=== PATIENT | female | born 1975 | race Caucasian/White ===

== ENCOUNTER 2017-03-08 04:57 | Day surgery (SDC) | payer BC ==
[2017-03-04 12:23] LABS: HEMATOCRIT 35.1 % (36.0-48.0); HEMOGLOBIN 12.2 g/dL (12.0-16.0)
--- NOTE | ~2017-03-08 | OP ---
Record Of Operation [facility] [address] [place]. [address] NAME: BENNY RAJPUT : 77 [place]US : [facility] [place] PAT#: [id number] AGE: 41 ADM/REG DATE : 03/08/17 MR#: [id number] REPORT SERV DATE: 03/08/17 DICTATED BY: GEOFFREY DEJESUS DATE: 03/08/17 REPORT STATUS : Draft TRANSCRIBED BY: MODL DATE: 03/08/17 DATE OF PROCEDURE: 03/08/2017 PREOPERATIVE DIAGNOSES: C5-C6 disk herniation with severe stenosis and cervical radiculopathy. POSTOPERATIVE DIAGNOSES: C5-C6 disk herniation with severe stenosis and cervical radiculopathy. PROCEDURES: C5-C6 anterior cervical disk arthroplasty, use of operative microscope, and neuromonitoring. SURGEON: Geoffrey Dejesus DO. ANESTHESIA: General. ESTIMATED BLOOD LOSS: 10 mL. COMPLICATIONS: None. INDICATIONS: The patient is a pleasant 41-year-old with intractable neck and right upper extremity pain, paresthesias, failed conservative treatment. After discussion of the risks and benefits, elected to proceed with surgical intervention. PROCEDURE IN DETAIL: I identified the patient in the holding area. Consent was obtained. Went to the operating room. Underwent general anesthesia with endotracheal intubation. Prepped and draped in the usual sterile fashion. Operative safety pause was performed, then we proceeded with the surgery. A transverse incision was made on the left side over the C5- C6 level in alignment with the skin crease. Dissection was carried out down to the anterior aspect of the spine. Longus colli were elevated. Self-retaining retractors were placed. [place] pin was placed in the C5 vertebrae and verified level with operative with lateral fluoroscopic image. An additional pin was placed at C6. Distraction was applied. Operative microscope was brought in. Knife was used to perform an annulotomy. Free disk material was removed with the pituitary. Anterior osteophytes were removed with the Kerrison. Posterior osteophytes and uncinate processes were taken down with a nimco sanjiv. Foraminotomies performed with a Kerrison. Endplates were prepared with a rasp and curettes. Trial spacer was implanted, and verified for good size in the AP and lateral fluoroscopic images. Next, the guide was placed and four temporary pins were placed into the vertebral body and the alignment was again verified with AP and lateral fluoroscopic image. The pins were removed and then the device to perform the small Nancy was implanted to create the Nancy, and then it was removed after verifying good position with AP and lateral images. The Medtronic disk arthroplasty device, the PRESTIGE LP was gently inserted into place through the previously made path. It was verified for good position in the AP and lateral fluoroscopic images. The special ed assistant device was removed. Final AP and lateral images were obtained. Hemostasis was achieved. Irrigation was performed. Layered closure was performed. Sterile dressings were applied. The patient was awoken and extubated, and taken Record Of Operation [address] [address] NAME: BENNY RAJPUT : 77 [place]US : [facility] [place] PAT#: [id number] AGE: 41 ADM/REG DATE : 03/08/17 MR#: [id number] REPORT SERV DATE: 03/08/17 DICTATED BY: GEOFFREY DEJESUS DATE: 03/08/17 REPORT STATUS : Draft TRANSCRIBED BY: CHUCHO DATE: 03/08/17 to the recovery room in stable condition. OPERATIVE FINDINGS: C5-6 disk herniation and stenosis. No sustained neuromonitoring alerts. JULIANE/CHUCHO Geoffrey Dejesus DO / [id number] CC: DO Albertina Monsalve M.D.
[~2017-03-08 04:57] MED LIST: AT25 PO; LORT7 PO; SINGULAIR1 PO; VESICARE10 MG PO; ZYRTEC-D ALG PO
[2017-03-21] MEDS ORDERED: BACDS PO (16:00)
[2017-03-21] MEDS ORDERED: FLEX PO (16:01)
[2017-03-21] MEDS ORDERED: PHENYLEPHRIN10 MG PO (16:02)
[2017-03-21] MEDS ORDERED: ZYRTEC ALLGY10 MG PO (16:11)
== END 2017-03-08 17:13 | disposition home or self-care (01) ==
LOC: SDC 04:57
PROVIDERS: Orthopaedic Surgery
PROC: 0RR30JZ Replacement of Cervical Vertebral Disc with Synthetic Substitute, Open Approach (ICD-10-PCS; principal; 2017-03-08 06:45)
DX: M50.122 Cervical disc disorder at C5-C6 level with radiculopathy (principal); M48.02 Spinal stenosis, cervical region; M41.9 Scoliosis, unspecified; K31.84 Gastroparesis; F32.9 Major depressive disorder, single episode, unspecified; N30.10 Interstitial cystitis (chronic) without hematuria; Z88.5 Allergy status to narcotic agent; Z79.899 Other long term (current) drug therapy; Z98.890 Other specified postprocedural states; Z87.891 Personal history of nicotine dependence; Z90.49 Acquired absence of other specified parts of digestive tract
CPT/HCPCS: 82962; 84703; 85014; 85018; 87070; 88304; 88311; C1713; J0690; J2250; J2405; J2710; J3010

== ENCOUNTER 2017-03-22 11:52 | Day surgery (SDC) | payer BC ==
--- NOTE | ~2017-03-22 | OP ---
Record Of Operation [facility] [address] [place]. [address] NAME: BENNY RAJPUT : 77 STATUS : [facility] [place] PAT#: [id number] AGE: 41 ADM/REG DATE : 03/22/17 MR#: [id number] REPORT SERV DATE: 03/22/17 DICTATED BY: GEOFFREY DEJESUS DATE: 03/22/17 REPORT STATUS : Draft TRANSCRIBED BY: MODL DATE: 03/22/17 DATE OF PROCEDURE: 03/22/2017 PREOPERATIVE DIAGNOSIS: Postoperative wound dehiscence, status post cervical arthroplasty. POSTOPERATIVE DIAGNOSIS: Postoperative wound dehiscence, status post cervical arthroplasty (no signs of intraoperative infection) SURGEON: Geoffrey Dejesus DO. ANESTHESIA: General. ESTIMATED BLOOD LOSS: 1 mL. COMPLICATIONS: None. PROCEDURE: Irrigation and debridement of cervical spine (debridement of skin tissue and superficial washout). INDICATIONS: The patient is a pleasant 41-year-old, who had undergone a cervical arthroplasty approximately two weeks ago, had developed a wound dehiscence, was actually seen at her employee health at [facility], given a gram of Rocephin IM, and started on Bactrim. Cultures were taken at [facility] and they were negative. She presented to me yesterday with continued wound dehiscence. There was an area of erythema that appeared to be related to a skin reaction from adhesives. There was a small area of swelling that she said was getting less as time went on. Due to the fact that the wound was still open at that period of time, I did recommend irrigation and debridement. After discussion of risks and benefits, we elected to proceed with surgery. PROCEDURE IN DETAIL: I identified the patient in the holding area, consent was obtained, went to the operating room, underwent general anesthesia with endotracheal intubation, prepped and draped in the usual sterile fashion, operative safety pause was performed, and then we proceeded. The skin was ellipsed out and cultures were taken in the subcutaneous layer above the platysma. The platysma remained intact. Pulsatile irrigation was performed. Layered closure performed using PDS suture, sterile dressing was applied. The patient was awoke, extubated, and taken recovery room in stable condition. There were no signs of purulent material or any signs of infection. JULIANE/CHUCHO Geoffrey Dejesus DO Record Of Operation [address] [address] NAME: BENNY RAJPUT : 77 STATUS : [facility] [place] PAT#: [id number] AGE: 41 ADM/REG DATE : 03/22/17 MR#: [id number] REPORT SERV DATE: 03/22/17 DICTATED BY: GEOFFREY DEJESUS DATE: 03/22/17 REPORT STATUS : Draft TRANSCRIBED BY: MODL DATE: 03/22/17 / [id number] CC: DO NAE Monsalve HEATHER L.
[~2017-03-22 11:52] MED LIST changes: +BACDS PO; +FLEX PO; +PHENYLEPHRIN10 MG PO; +ZYRTEC ALLGY10 MG PO
[2017-03-22 12:29] LABS: HEMATOCRIT 37.2 % (36.0-48.0); HEMOGLOBIN 13.2 g/dL (12.0-16.0)
== END 2017-03-22 18:57 | disposition home or self-care (01) ==
LOC: SDC 11:52
PROVIDERS: Orthopaedic Surgery
PROC: 0JB50ZZ Excision of Left Neck Subcutaneous Tissue and Fascia, Open Approach (ICD-10-PCS; principal; 2017-03-22 14:00)
DX: T81.31XA Disruption of external operation (surgical) wound, not elsewhere classified, initial encounter (principal); M41.9 Scoliosis, unspecified; K31.84 Gastroparesis; N30.10 Interstitial cystitis (chronic) without hematuria; F32.9 Major depressive disorder, single episode, unspecified; Z88.5 Allergy status to narcotic agent; Z79.899 Other long term (current) drug therapy; Z87.81 Personal history of (healed) traumatic fracture; Z98.890 Other specified postprocedural states; Z90.49 Acquired absence of other specified parts of digestive tract
CPT/HCPCS: 84703; 85014; 85018; 87070; 87075; 87205; A9270-GY; J0690; J2250; J2405; J2710; J3010; J3370